=== PATIENT | male | born 2000 | race Caucasian/White ===

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

== ENCOUNTER 2021-03-21 06:32 | Emergency (ER) | payer MEDICAID, OTHER ==
[~2021-03-21] VITALS: Ht 185.4 cm; Wt 99.8 kg
[2021-03-21 06:32] VITALS: BP 134/71
== END 2021-03-21 06:56 | disposition left against medical advice (07) ==
LOC: ER 06:32
DX: Z04.1 Encounter for examination and observation following transport accident (principal); F17.210 Nicotine dependence, cigarettes, uncomplicated; F12.10 Cannabis abuse, uncomplicated; F41.9 Anxiety disorder, unspecified; F32.9 Major depressive disorder, single episode, unspecified

== ENCOUNTER 2022-03-07 19:24 | Emergency (ER) | payer MEDICAID ==
[~2022-03-07] VITALS: Ht 188 cm; Wt 90.7 kg
[2022-03-07] MEDS ORDERED: SODIUM CHLORIDE 0.9% 1,000 ML IV ONE (19:45)
[2022-03-07 20:06] VITALS: BP 110/74
== END 2022-03-07 20:46 | disposition home or self-care (01) ==
LOC: EDBD 19:24 → ER 19:29
DX: F10.129 Alcohol abuse with intoxication, unspecified (principal); Y90.8 Blood alcohol level of 240 mg/100 ml or more
CPT/HCPCS: 36415; 80320

== ENCOUNTER 2023-05-14 00:27 | Inpatient (IN) | payer MEDICAID ==
[~2023-05-14] VITALS: Ht 180.3 cm; Wt 90.9 kg
[2023-05-14 00:40] VITALS: PULSE 99; RESP 15; O2SAT 99
[2023-05-14] MEDS ORDERED: LORazepam 2MG/ML-1ML VIAL IV PRN (00:45)
[2023-05-14] MEDS ORDERED: LORazepam 2MG/ML-1ML VIAL IV ONE (00:45)
[2023-05-14] MEDS ORDERED: SODIUM CHLORIDE 0.9% 1,000 ML IV ONE (00:45)
[2023-05-14] MEDS ORDERED: THIAMINE 100mg/ml INJ (200mg/2ml VIAL) IV ONE (00:45)
[2023-05-14 01:17] LABS: Urine Bacteria NONE SEEN /hpf (None Seen); Urine Color Yellow (Yellow); Urine WBC 3 /hpf (0 - 3)
[2023-05-14 01:18] LABS: Urine Blood Negative /uL (Negative); Urine Clarity CLEAR (Clear); Urine Protein, UAD TRACE (Negative); Urine Urobilinogen Normal (Negative)
[2023-05-14 01:31] LABS: Basophils # (auto) 0.1 10 ^3/uL (0-0.2); Basophils % (auto) 0.6 % (0.0-2.0); Eosinophils # (auto) 0.1 10 ^3/uL (0-0.8); Eosinophils % (auto) 0.8 % (0.0-7.0); Hematocrit 43.6 % (41.0-53.0); Hemoglobin 14.9 g/dL (13.5-17.5); Lymphocytes # (auto) 1.4 10 ^3/uL (0.4-5.4); Lymphocytes % (auto) 15.4 % (10.0-50.0); Mean Corpuscular Hgb Conc. 34.1 g/dL (32.0-36.0); Monocytes # (auto) 0.8 10 ^3/uL (0-1.3); Monocytes % (auto) 8.1 % (0.0-12.0); Neutrophils % (auto) 75.1 % (37.0-80.0); Nucleated Red Blood Cells % 0.1 %; Red Blood Cells 5.13 10^6/uL (4.5-5.90); Red Cell Distribution Width 14.1 % (11.8-14.3); White Blood Cell 9.4 10^3/uL (4.4-10.8)
[2023-05-14 01:43] LABS: Salicylate < 1.7 mg/dL (2.8-20.0)
[2023-05-14 01:44] LABS: Alanine Aminotransferase 119 U/L (16-61); Albumin 3.6 g/dL (3.4-5.0); Anion Gap 8 (5-15); Aspartate Aminotransferase 49 U/L (15-37); BUN/Creatinine Ratio 16.5 (10.0-20.0); Blood Alcohol < 3.0 mg/dL (<10); Blood Urea Nitrogen 14 mg/dL (7-18); Calcium 8.4 mg/dL (8.5-10.1); Carbon Dioxide 28 mmol/L (21-32); Chloride 102 mmol/L (98-107); GFR African American 142 mL/min; GFR Non-African American 118 mL/min; Glucose 110 mg/dL (74-106); Magnesium 2.1 mg/dL (1.6-2.6); Potassium 3.3 mmol/L (3.5-5.1); Sodium 138 mmol/L (136-145)
[2023-05-14 01:46] LABS: Alkaline Phosphatase 45 U/L (45-117); Bilirubin, Total 0.3 mg/dL (0.2-1.0); Total Protein 6.6 g/dL (6.4-8.2)
[2023-05-14 01:47] LABS: Acetaminophen 2.1 ug/mL (10-30)
[2023-05-14 02:18] LABS: Alcohol, Urine < 3.0 mg/dL (0-10); Barbiturate Scree,Urine NEGATIVE (NEGATIVE); Benzodiazephine Screen, Urine NEGATIVE (NEGATIVE); Cannabinoid Screen, Urine POSITIVE (NEGATIVE); Cocaine Screen, Urine NEGATIVE (NEGATIVE)
[2023-05-14 02:25] LABS: Amphetamine Screen, Urine NEGATIVE (NEGATIVE); Opiate Scree,Urine NEGATIVE (NEGATIVE); Phencyclidine Screen, Urine NEGATIVE (NEGATIVE)
[2023-05-14] MEDS ORDERED: NITROGLYCERIN 0.4 MG SL TAB SL PRN (05:45)
[2023-05-14] MEDS ORDERED: ONDANSETRON HCL 4 MG/2 ML VIAL IV PRN (05:45)
[2023-05-14] MEDS ORDERED: hydrALAZINE HCL 20 MG/ML VL IV PRN (05:45)
[2023-05-14] MEDS ORDERED: HYDROcodone-ACET 5/325MG TAB PO PRN (05:45)
[2023-05-14] MEDS ORDERED: IBUPROFEN 600 MG TAB PO PRN (05:45)
[2023-05-14] MEDS ORDERED: MORPHINE SULFATE INJ 2 MG/ml SYRG IV PRN (05:45)
[2023-05-14] MEDS: SODIUM CHLORIDE 0.9% 1,000 ML IV SCH ×2 (05:45→22:29)
[2023-05-14] MEDS ORDERED: DOCUSATE SOD 100 MG CAP PO PRN (05:45)
[2023-05-14 08:06] LABS: Calcium 8.5 mg/dL (8.5-10.1); Potassium 3.5 mmol/L (3.5-5.1)
[2023-05-14 08:12] LABS: Albumin 3.4 g/dL (3.4-5.0); Bilirubin, Total 0.4 mg/dL (0.2-1.0); Total Protein 6.5 g/dL (6.4-8.2)
[2023-05-14 14:14] VITALS: PULSE 20; RESP 20; O2SAT 96
[2023-05-14 19:30] VITALS: PULSE 86; RESP 14; O2SAT 98
[2023-05-15 06:02] LABS: Albumin 3.8 g/dL (3.4-5.0); BUN/Creatinine Ratio 15.5 (10.0-20.0); Calcium 8.9 mg/dL (8.5-10.1); Potassium 3.8 mmol/L (3.5-5.1)
[2023-05-15 06:05] LABS: Bilirubin, Total 0.5 mg/dL (0.2-1.0); Total Protein 6.8 g/dL (6.4-8.2)
[2023-05-15 07:57] VITALS: PULSE 73; RESP 18; O2SAT 96
[2023-05-15 11:24] VITALS: BP 143/78; PULSE 72; RESP 17; TEMP 97.7; O2SAT 98
== END 2023-05-15 12:58 | disposition left against medical advice (07) | DRG 111 ==
LOC: ER 00:27 → EDBD 00:27 → TELE 05:37 → TELE-WESTW 05-15 09:57
PROVIDERS: ADMIT Nurse Practitioner Family; ATTEND Internal Medicine Geriatric Medicine
DX: R42 Dizziness and giddiness (principal); E87.6 Hypokalemia; F41.9 Anxiety disorder, unspecified; I10 Essential (primary) hypertension; R79.89 Other specified abnormal findings of blood chemistry; F12.90 Cannabis use, unspecified, uncomplicated; Z53.29 Procedure and treatment not carried out because of patient's decision for other reasons
CPT/HCPCS: 36415; 71045; 80053; 80307; 80320; 80329; 81001; 83735; 85025; 96361; 96374; 96375; G0378

== ENCOUNTER 2023-09-15 14:39 | Inpatient (IN) | payer MEDICAID ==
[~2023-09-15] VITALS: Ht 182.9 cm; Wt 102.2 kg
[2023-09-15] MEDS ORDERED: SODIUM CHLORIDE 0.9% 1,000 ML IVB ONE (15:00)
[2023-09-15] MEDS ORDERED: TETANUS-DIPTH-ACEL PERTUSSIS 0.5ML SYR Tdap IM ONE (15:00)
[2023-09-15 15:25] VITALS: PULSE 130; RESP 24; O2SAT 95
[2023-09-15 15:27] LABS: Basophils # (auto) 0.1 10 ^3/uL (0-0.2); Basophils % (auto) 0.5 % (0.0-2.0); Eosinophils # (auto) 0 10 ^3/uL (0-0.8); Eosinophils % (auto) 0.2 % (0.0-7.0); Hematocrit 52.8 % (41.0-53.0); Lymphocytes # (auto) 2.5 10 ^3/uL (0.4-5.4); Lymphocytes % (auto) 12.9 % (10.0-50.0); Mean Corpuscular Hgb Conc. 32.3 g/dL (32.0-36.0); Mean Corpuscular Volume 86.7 fL (80.0-100.0); Monocytes # (auto) 1.2 10 ^3/uL (0-1.3); Monocytes % (auto) 6.3 % (0.0-12.0); Neutrophils # (auto) 15.3 10 ^3/uL (1.6-8.6); Neutrophils % (auto) 80.1 % (37.0-80.0); Nucleated Red Blood Cells % 0.1 %; Red Blood Cells 6.09 10^6/uL (4.5-5.90); Red Cell Distribution Width 13.3 % (11.8-14.3); White Blood Cell 19.2 10^3/uL (4.4-10.8)
[2023-09-15 15:41] LABS: Alanine Aminotransferase 82 U/L (7-40); Albumin 5.3 g/dL (3.2-4.8); Alkaline Phosphatase 65 U/L (46-116); Anion Gap 19 (5-15); Aspartate Aminotransferase 22 U/L (13-40); BUN/Creatinine Ratio 11.3 (10.0-20.0); Bilirubin, Total 0.5 mg/dL (0.2-1.0); Blood Alcohol < 3.0 mg/dL (<10); Blood Urea Nitrogen 12 mg/dL (9-23); Calcium 9.5 mg/dL (8.7-10.4); Carbon Dioxide 16 mmol/L (20-30); Chloride 101 mmol/L (98-107); Glucose 197 mg/dL (74-106); Lipase 36 U/L (12-53); Potassium 4.2 mmol/L (3.5-5.1); Sodium 136 mmol/L (136-145)
[2023-09-15] MEDS ORDERED: levETIRAcetam 1000 mg/100ml 100 ML IV ONE ×2 (17:00→17:16)
[2023-09-15] MEDS ORDERED: IBUP-1455 PO (19:12)
[2023-09-15] MEDS ORDERED: CEPH500C PO (19:12)
[2023-09-15] MEDS ORDERED: SILV-51 TOP (19:12)
[2023-09-15] MEDS ORDERED: MORPHINE SULFATE INJ 2 MG/ml SYRG IV PRN (19:15)
[2023-09-15] MEDS ORDERED: NITROGLYCERIN 0.4 MG SL TAB SL PRN (19:15)
[2023-09-15] MEDS ORDERED: ACETAMINOPHEN 325 MG TAB PO PRN (19:15)
[2023-09-15] MEDS ORDERED: LORazepam 2MG/ML-1ML VIAL IV PRN ×2 (19:15→19:30)
[2023-09-15 19:20] VITALS: PULSE 100; RESP 18; O2SAT 98
[2023-09-15] MEDS ORDERED: SODIUM CHLORIDE 0.9% 1,000 ML IV ONE (19:30)
[2023-09-15] MEDS: SODIUM CHLORIDE 0.9% 1,000 ML IV SCH (19:40)
[2023-09-15] MEDS ORDERED: ALBUTEROL SULF 2.5 MG/0.5ML(0.5%) NEB SOLN NEB PRN (19:45)
[2023-09-15] MEDS ORDERED: cefTRIAXone 1GM/50ML D5W 50 ML IV ONE ×2 (19:45→21:01)
[2023-09-15 20:13] VITALS: BP 117/75; PULSE 94; RESP 22; O2SAT 98
[2023-09-15 21:43] VITALS: O2SAT 96
[2023-09-15] MEDS: ONDANSETRON HCL 4 MG/2 ML VIAL IV PRN (21:50)
[2023-09-16] VITALS (7 sets, daily range): BP systolic 118–150; BP diastolic 49–74; PULSE 78–94; RESP 14–20; TEMP 97.9–98.3; O2SAT 96–98
[2023-09-16] MEDS ORDERED: ACETAMINOPHEN 325 MG TAB PO ONE ×2 (01:56→12:01)
[2023-09-16] MEDS: ONDANSETRON HCL 4 MG/2 ML VIAL IV PRN ×3 (01:58→23:36)
[2023-09-16] MEDS ORDERED: ONDANSETRON HCL 4 MG/2 ML VIAL ONE ×3 (01:58→23:32)
[2023-09-16] MEDS ORDERED: HYDROmorphone HCL 2 MG/ML VL/or syr ONE (02:10)
[2023-09-16] MEDS ORDERED: HYDROmorphone HCL 2 MG/ML VL/or syr IV ONE (02:15)
[2023-09-16] MEDS: SODIUM CHLORIDE 0.9% 1,000 ML IV SCH ×3 (03:35→20:29)
[2023-09-16 04:49] LABS: Basophils # (auto) 0 10 ^3/uL (0-0.2); Basophils % (auto) 0.2 % (0.0-2.0); Eosinophils # (auto) 0 10 ^3/uL (0-0.8); Hematocrit 45.5 % (41.0-53.0); Hemoglobin 14.9 g/dL (13.5-17.5); Lymphocytes # (auto) 0.8 10 ^3/uL (0.4-5.4); Lymphocytes % (auto) 4.6 % (10.0-50.0); Mean Corpuscular Hemoglobin 27.7 pg (28.0-32.0); Mean Corpuscular Hgb Conc. 32.8 g/dL (32.0-36.0); Mean Corpuscular Volume 84.7 fL (80.0-100.0); Monocytes # (auto) 1.8 10 ^3/uL (0-1.3); Monocytes % (auto) 10.5 % (0.0-12.0); Neutrophils # (auto) 14.5 10 ^3/uL (1.6-8.6); Neutrophils % (auto) 84.7 % (37.0-80.0); Red Blood Cells 5.37 10^6/uL (4.5-5.90); Red Cell Distribution Width 13.3 % (11.8-14.3); White Blood Cell 17.1 10^3/uL (4.4-10.8)
[2023-09-16 05:05] LABS: Alanine Aminotransferase 62 U/L (7-40); Albumin 4.4 g/dL (3.2-4.8); Alkaline Phosphatase 51 U/L (46-116); Anion Gap 10 (5-15); Aspartate Aminotransferase 49 U/L (13-40); BUN/Creatinine Ratio 7.4 (10.0-20.0); Blood Urea Nitrogen 16 mg/dL (9-23); Calcium 8.5 mg/dL (8.7-10.4); Carbon Dioxide 23 mmol/L (20-30); Chloride 103 mmol/L (98-107); Glucose 115 mg/dL (74-106); Potassium 3.9 mmol/L (3.5-5.1); Sodium 136 mmol/L (136-145)
[2023-09-16 05:06] LABS: Bilirubin, Total 0.6 mg/dL (0.2-1.0); Total Protein 6.7 g/dL (5.7-8.2)
[2023-09-16] MEDS ORDERED: cefTRIAXone 1GM/50ML D5W 50 ML IV ONE (12:01)
[2023-09-16] MEDS ORDERED: ENOXAPARIN SOD 40 MG/0.4 ML SYRINGE SC ONE (12:01)
[2023-09-16] MEDS: cefTRIAXone 1GM/50ML D5W 50 ML IV SCH (12:33)
[2023-09-16] MEDS: ENOXAPARIN SOD 40 MG/0.4 ML SYRINGE SC SCH (12:34)
[2023-09-16] MEDS: FOLIC ACID 1 MG, MAGNESIUM SULF SDV 50% 8 MEQ, MULTIPLE VITAMIN 10 ML, THIAMINE INJ 100... INJ SCH ×5 (17:16)
[2023-09-16] MEDS ORDERED: hydrALAZINE HCL 20 MG/ML VL IV PRN (21:15)
[2023-09-17] VITALS (8 sets, daily range): BP systolic 113–128; BP diastolic 65–83; PULSE 52–85; RESP 16–18; TEMP 97.7–98.5; O2SAT 91–99
[2023-09-17] MEDS ORDERED: HYDROcodone-ACET 5/325MG TAB PO ONE
[2023-09-17] MEDS ORDERED: HYDROcodone-ACET 5/325MG TAB ONE (00:19)
[2023-09-17] MEDS: SODIUM CHLORIDE 0.9% 1,000 ML IV SCH ×3 (04:57→21:29)
[2023-09-17] MEDS: cefTRIAXone 1GM/50ML D5W 50 ML IV SCH (12:10)
[2023-09-17] MEDS: ENOXAPARIN SOD 40 MG/0.4 ML SYRINGE SC SCH (12:10)
[2023-09-17] MEDS: FOLIC ACID 1 MG, MAGNESIUM SULF SDV 50% 8 MEQ, MULTIPLE VITAMIN 10 ML, THIAMINE INJ 100... INJ SCH ×5 (17:16)
[2023-09-18] VITALS (7 sets, daily range): BP systolic 101–153; BP diastolic 51–100; PULSE 46–93; RESP 16–18; TEMP 98–98.9; O2SAT 94–98
[2023-09-18] MEDS ORDERED: TEMAZEPAM 15 MG CAP PO ONE (01:15)
[2023-09-18] MEDS: SODIUM CHLORIDE 0.9% 1,000 ML IV SCH ×3 (05:41→22:15)
[2023-09-18 09:36] LABS: Hepatitis B Core Total AB Negative (Negative)
[2023-09-18] MEDS: ENOXAPARIN SOD 40 MG/0.4 ML SYRINGE SC SCH (10:16)
[2023-09-18] MEDS: cefTRIAXone 1GM/50ML D5W 50 ML IV SCH (10:16)
[2023-09-18 11:36] LABS: Hepatitis A Total Antibody Positive (Negative); Hepatitis B Surface Antibody Negative (Negative); Hepatitis B Surface Antigen Negative (Negative); Hepatitis C Antibody Negative (Negative)
[2023-09-18] MEDS: FOLIC ACID 1 MG, MAGNESIUM SULF SDV 50% 8 MEQ, MULTIPLE VITAMIN 10 ML, THIAMINE INJ 100... INJ SCH ×5 (18:00)
[2023-09-19 04:47] VITALS: BP 142/70; PULSE 50; RESP 16; TEMP 97.8; O2SAT 95
[2023-09-19] MEDS: SODIUM CHLORIDE 0.9% 1,000 ML IV SCH (05:33)
[2023-09-19 08:00] VITALS: BP 153/98; PULSE 55; PULSE 65; RESP 18; TEMP 98.4; O2SAT 97
[2023-09-19] MEDS: cefTRIAXone 1GM/50ML D5W 50 ML IV SCH (09:56)
[2023-09-19] MEDS: ENOXAPARIN SOD 40 MG/0.4 ML SYRINGE SC SCH (09:56)
[2023-09-19] MEDS ORDERED: LORazepam 2MG/ML-1ML VIAL IV ONE (11:45)
== END 2023-09-19 12:48 | disposition left against medical advice (07) | DRG 53 ==
LOC: EDBD 14:39 → ER 14:39 → TELE 19:12 → TELE-WESTW 09-16 07:54
PROVIDERS: ADMIT Nurse Practitioner Family; ATTEND Internal Medicine
DX: G40.909 Epilepsy, unspecified, not intractable, without status epilepticus (principal); K76.0 Fatty (change of) liver, not elsewhere classified; D72.829 Elevated white blood cell count, unspecified; F10.10 Alcohol abuse, uncomplicated; E86.0 Dehydration; S01.91XA Laceration without foreign body of unspecified part of head, initial encounter; I48.91 Unspecified atrial fibrillation; J45.909 Unspecified asthma, uncomplicated; R73.9 Hyperglycemia, unspecified; R19.7 Diarrhea, unspecified; F41.9 Anxiety disorder, unspecified; F10.129 Alcohol abuse with intoxication, unspecified; F12.10 Cannabis abuse, uncomplicated; Z53.29 Procedure and treatment not carried out because of patient's decision for other reasons; F17.210 Nicotine dependence, cigarettes, uncomplicated; W18.39XA Other fall on same level, initial encounter; F20.9 Schizophrenia, unspecified; F31.9 Bipolar disorder, unspecified; Z79.899 Other long term (current) drug therapy; Z81.8 Family history of other mental and behavioral disorders; Z82.49 Family history of ischemic heart disease and other diseases of the circulatory system; Z82.5 Family history of asthma and other chronic lower respiratory diseases; Z83.3 Family history of diabetes mellitus; Y93.89 Activity, other specified; Y92.89 Other specified places as the place of occurrence of the external cause; Y99.8 Other external cause status
CPT/HCPCS: 36415; 70450; 72125; 74176; 80053; 80320; 83036; 83690; 83735; 85025; 86704; 86706; 86708; 86803; 87040; 87340; 90471; 93005; 96361; 96365; 96367; 96375; G0378; J2405

== ENCOUNTER 2023-12-09 17:52 | Inpatient (IN) | payer MEDICAID ==
[~2023-12-09] VITALS: Ht 185.4 cm; Wt 99.5 kg
[2023-12-09 19:45] LABS: Basophils # (auto) 0 10 ^3/uL (0-0.2); Basophils % (auto) 0.1 % (0.0-2.0); Eosinophils # (auto) 0 10 ^3/uL (0-0.8); Hematocrit 46.4 % (41.0-53.0); Hemoglobin 15.4 g/dL (13.5-17.5); Lymphocytes # (auto) 0.7 10 ^3/uL (0.4-5.4); Lymphocytes % (auto) 4.7 % (10.0-50.0); Mean Corpuscular Hemoglobin 27.6 pg (28.0-32.0); Mean Corpuscular Hgb Conc. 33.1 g/dL (32.0-36.0); Mean Corpuscular Volume 83.5 fL (80.0-100.0); Monocytes # (auto) 0.5 10 ^3/uL (0-1.3); Monocytes % (auto) 3.2 % (0.0-12.0); Neutrophils # (auto) 14.7 10 ^3/uL (1.6-8.6); Red Blood Cells 5.55 10^6/uL (4.5-5.90); Red Cell Distribution Width 13.5 % (11.8-14.3)
[2023-12-09 20:00] VITALS: PULSE 82; RESP 13; O2SAT 98
[2023-12-09 20:01] LABS: INR 1.07 (0.9-1.15); Partial Thromboplastin Time 36.5 SEC (24.5-34.5); Prothrombin Time 11.2 sec (9.3-11.8)
[2023-12-09 20:03] LABS: Alanine Aminotransferase 32 U/L (7-40); Albumin 4.6 g/dL (3.2-4.8); Alkaline Phosphatase 70 U/L (46-116); Anion Gap 9 (5-15); Aspartate Aminotransferase 16 U/L (13-40); Blood Urea Nitrogen 12 mg/dL (9-23); Calcium 9.5 mg/dL (8.7-10.4); Carbon Dioxide 23 mmol/L (20-30); Chloride 102 mmol/L (98-107); Glucose 90 mg/dL (74-106); Potassium 4.1 mmol/L (3.5-5.1); Sodium 134 mmol/L (136-145)
[2023-12-09 20:04] LABS: Bilirubin, Total 0.5 mg/dL (0.2-1.0); Total Protein 6.8 g/dL (5.7-8.2)
[2023-12-09] MEDS: levETIRAcetam 1000 mg/100ml 100 ML IV ONE (20:09)
[2023-12-09 20:19] LABS: Blood Alcohol < 3.0 mg/dL (<10)
[2023-12-09] MEDS ORDERED: ACETAMINOPHEN 325 MG TAB PO PRN (21:45)
[2023-12-09] MEDS ORDERED: ONDANSETRON HCL 4 MG/2 ML VIAL IV PRN (21:45)
[2023-12-09] MEDS ORDERED: DOCUSATE SOD 100 MG CAP PO PRN (21:45)
[2023-12-09] MEDS: SODIUM CHLORIDE 0.9% 1,000 ML IV SCH (21:52)
[2023-12-09] MEDS: HYDROcodone-ACET 5/325MG TAB PO PRN (21:52)
[2023-12-09 22:26] LABS: Amphetamine Screen, Urine Neg (NEGATIVE); Barbiturate Scree,Urine Neg (NEGATIVE); Benzodiazephine Screen, Urine Neg (NEGATIVE); Cannabinoid Screen, Urine Pos (NEGATIVE); Cocaine Screen, Urine Neg (NEGATIVE); Opiate Scree,Urine Neg (NEGATIVE); Phencyclidine Screen, Urine Neg (NEGATIVE)
[2023-12-09] MEDS ORDERED: HYDR-4924 PO ×2 (23:02)
[2023-12-09] MEDS ORDERED: RISP0.5T17 PO ×2 (23:02)
[2023-12-09] MEDS ORDERED: MORPHINE SULFATE INJ 2 MG/ml SYRG IV PRN (23:45)
[2023-12-09] MEDS ORDERED: NITROGLYCERIN 0.4 MG SL TAB SL PRN (23:45)
[2023-12-10 05:31] LABS: Basophils # (auto) 0.1 10 ^3/uL (0-0.2); Basophils % (auto) 0.7 % (0.0-2.0); Eosinophils # (auto) 0.1 10 ^3/uL (0-0.8); Eosinophils % (auto) 0.7 % (0.0-7.0); Hematocrit 45.1 % (41.0-53.0); Hemoglobin 14.9 g/dL (13.5-17.5); Lymphocytes # (auto) 2.9 10 ^3/uL (0.4-5.4); Lymphocytes % (auto) 22.1 % (10.0-50.0); Mean Corpuscular Hemoglobin 27.6 pg (28.0-32.0); Mean Corpuscular Hgb Conc. 33.1 g/dL (32.0-36.0); Mean Corpuscular Volume 83.5 fL (80.0-100.0); Monocytes # (auto) 1.3 10 ^3/uL (0-1.3); Monocytes % (auto) 9.7 % (0.0-12.0); Neutrophils # (auto) 8.9 10 ^3/uL (1.6-8.6); Neutrophils % (auto) 66.8 % (37.0-80.0); Red Blood Cells 5.41 10^6/uL (4.5-5.90); Red Cell Distribution Width 13.5 % (11.8-14.3); White Blood Cell 13.3 10^3/uL (4.4-10.8)
[2023-12-10] MEDS: MELATONIN 5 MG TAB PO ONE (05:38)
[2023-12-10] MEDS ORDERED: MELATONIN 5 MG TAB PO SCH (05:45)
[2023-12-10 05:55] LABS: Alanine Aminotransferase 26 U/L (7-40); Albumin 4.4 g/dL (3.2-4.8); Alkaline Phosphatase 61 U/L (46-116); Anion Gap 7 (5-15); Aspartate Aminotransferase 12 U/L (13-40); Blood Urea Nitrogen 10 mg/dL (9-23); Calcium 9.4 mg/dL (8.7-10.4); Carbon Dioxide 25 mmol/L (20-30); Chloride 104 mmol/L (98-107); Glucose 90 mg/dL (74-106); Potassium 3.5 mmol/L (3.5-5.1); Sodium 136 mmol/L (136-145)
[2023-12-10 05:56] LABS: Bilirubin, Total 0.6 mg/dL (0.2-1.0); Total Protein 6.8 g/dL (5.7-8.2)
[2023-12-10 07:30] VITALS: PULSE 64; RESP 22; O2SAT 95
[2023-12-10] MEDS: levETIRAcetam 1000 mg/100ml 100 ML IV SCH (10:12)
[2023-12-10 17:20] VITALS: BP 130/70; PULSE 73; RESP 20; TEMP 98.2; O2SAT 98
[2023-12-10] MEDS ORDERED: MELA3TAB27 PO ×2 (19:06)
[2023-12-10 20:00] VITALS: PULSE 85; RESP 16; O2SAT 98
[2023-12-10 20:10] VITALS: PULSE 85
[2023-12-10 22:00] VITALS: BP 117/69; PULSE 57; RESP 17; TEMP 98.6; O2SAT 98
[2023-12-11 05:00] VITALS: BP 100/68; PULSE 74; RESP 16; TEMP 98; O2SAT 95
[2023-12-11 08:30] VITALS: PULSE 47
[2023-12-11 09:15] VITALS: BP 78/32; PULSE 60; RESP 18; TEMP 97.4; O2SAT 96
[2023-12-11 12:33] VITALS: BP 115/73; PULSE 69; RESP 18; TEMP 98.3; O2SAT 97
[2023-12-11] MEDS: hydrOXYzine 25 MG TAB or CAP PO SCH (12:54)
[2023-12-11 20:00] VITALS: BP 111/74; PULSE 73; PULSE 92; RESP 18; TEMP 98.5; O2SAT 95
[2023-12-11] MEDS: risperiDONE 1 MG TAB PO SCH (21:44)
[2023-12-11 22:00] VITALS: BP 111/74; PULSE 73; RESP 18; TEMP 98.5; O2SAT 95
[2023-12-12 05:00] VITALS: BP 101/63; PULSE 63; RESP 19; TEMP 97.5; O2SAT 95
[2023-12-12 08:00] VITALS: BP 114/68; PULSE 70; PULSE 81; RESP 16; TEMP 98.6; O2SAT 96
[2023-12-12 08:15] VITALS: BP 113/69; PULSE 56; RESP 18; TEMP 98.6; O2SAT 97
[2023-12-12 12:20] VITALS: BP 115/75; PULSE 68; RESP 18; TEMP 98.8; O2SAT 96
== END 2023-12-12 16:40 | disposition home or self-care (01) | DRG 53 ==
LOC: ER 17:52 → TELE 23:32 → TELE-WESTW 12-10 17:38
PROVIDERS: ADMIT Nurse Practitioner Family; ATTEND Internal Medicine
DX: G40.909 Epilepsy, unspecified, not intractable, without status epilepticus (principal); D72.829 Elevated white blood cell count, unspecified; F10.239 Alcohol dependence with withdrawal, unspecified; F17.200 Nicotine dependence, unspecified, uncomplicated; Z83.3 Family history of diabetes mellitus; Y90.9 Presence of alcohol in blood, level not specified
CPT/HCPCS: 36415; 70450; 71045; 80053; 80307; 80320; 82542; 84484; 85025; 85610; 85730; 93005; 95819; 96365; G0378

== ENCOUNTER 2023-12-15 17:57 | Emergency (ER) | payer MEDICAID ==
[~2023-12-15] VITALS: Ht 185.4 cm; Wt 97.7 kg
[~2023-12-15 17:57] MED LIST: HYDR-4924 PO; MELA3TAB27 PO; RISP0.5T17 PO
[2023-12-15] MEDS: BACITRACIN TOP OINT 1 UD PKG TOP ONE (19:24)
[2023-12-15] MEDS: TETANUS-DIPTH-ACEL PERTUSSIS 0.5ML SYR Tdap IM ONE (19:24)
[2023-12-15] MEDS: MORPHINE SULFATE 4 MG/ML SYR/VIAL IV ONE (19:28)
[2023-12-15] MEDS: ONDANSETRON HCL 4 MG/2 ML VIAL IV ONE (19:28)
[2023-12-15 21:40] VITALS: BP 143/96; PULSE 78; RESP 18; TEMP 99; O2SAT 96
== END 2023-12-15 21:45 | disposition short-term general hospital (02) ==
LOC: ER 17:57
DX: T23.202A Burn of second degree of left hand, unspecified site, initial encounter (principal); F12.10 Cannabis abuse, uncomplicated; J45.909 Unspecified asthma, uncomplicated; X08.8XXA Exposure to other specified smoke, fire and flames, initial encounter; Y93.G1 Activity, food preparation and clean up; Y92.89 Other specified places as the place of occurrence of the external cause; Y99.8 Other external cause status
CPT/HCPCS: 16020; 90471; 90715; 96374; 96375; 99285; J2270; J2405

== ENCOUNTER 2024-04-19 07:54 | Inpatient (IN) | payer MEDICAID ==
[~2024-04-19] VITALS: Ht 182.9 cm; Wt 98.3 kg
[2024-04-19 08:15] VITALS: PULSE 88; RESP 18; O2SAT 95
[2024-04-19] MEDS: SODIUM CHLORIDE 0.9% 1,000 ML IV ONE (08:22)
[2024-04-19] MEDS: LORazepam 2MG/ML-1ML VIAL IV ONE (08:23)
[2024-04-19] MEDS: levETIRAcetam 1000 mg/100ml 100 ML IV ONE (08:23)
[2024-04-19 08:44] LABS: Basophils # (auto) 0.1 10 ^3/uL (0-0.2); Basophils % (auto) 0.3 % (0.0-2.0); Eosinophils # (auto) 0 10 ^3/uL (0-0.8); Hemoglobin 15.2 g/dL (13.5-17.5); Lymphocytes # (auto) 1.4 10 ^3/uL (0.4-5.4); Lymphocytes % (auto) 7.3 % (10.0-50.0); Mean Corpuscular Hemoglobin 27.5 pg (28.0-32.0); Mean Corpuscular Hgb Conc. 33.7 g/dL (32.0-36.0); Mean Corpuscular Volume 81.8 fL (80.0-100.0); Monocytes # (auto) 1.3 10 ^3/uL (0-1.3); Monocytes % (auto) 7.1 % (0.0-12.0); Neutrophils # (auto) 15.9 10 ^3/uL (1.6-8.6); Neutrophils % (auto) 85.3 % (37.0-80.0); Nucleated Red Blood Cells % 0.1 %; Red Blood Cells 5.51 10^6/uL (4.5-5.90); Red Cell Distribution Width 14.8 % (11.8-14.3); White Blood Cell 18.6 10^3/uL (4.4-10.8)
[2024-04-19 08:47] LABS: Chloride 99 mmol/L (98-107); Potassium 3.5 mmol/L (3.5-5.1); Sodium 134 mmol/L (136-145)
[2024-04-19 08:48] LABS: Anion Gap 8 (5-15); Carbon Dioxide 27 mmol/L (20-30)
[2024-04-19 08:49] LABS: Calcium 9.2 mg/dL (8.7-10.4)
[2024-04-19 08:53] LABS: BUN/Creatinine Ratio 14.5 (10.0-20.0); Blood Urea Nitrogen 10 mg/dL (9-23); Glucose 132 mg/dL (74-106)
[2024-04-19] MEDS ORDERED: SODIUM CHLORIDE 0.9% 1,000 ML IV SCH (11:15)
[2024-04-19] MEDS ORDERED: NITROGLYCERIN 0.4 MG SL TAB SL PRN (11:15)
[2024-04-19] MEDS ORDERED: DOCUSATE SOD 100 MG CAP PO PRN (11:15)
[2024-04-19] MEDS ORDERED: ONDANSETRON HCL 4 MG/2 ML VIAL IV PRN (11:15)
[2024-04-19] MEDS ORDERED: LORazepam 2MG/ML-1ML VIAL IV PRN (11:15)
[2024-04-19] MEDS ORDERED: MORPHINE SULFATE INJ 2 MG/ml SYRG IV PRN ×2 (11:15)
[2024-04-19 12:53] VITALS: O2SAT 98
[2024-04-19 13:00] VITALS: BP 122/92; PULSE 87; RESP 17; TEMP 99.3; O2SAT 96
[2024-04-19] MEDS ORDERED: KEP500T PO (13:44)
[2024-04-19] MEDS ORDERED: levETIRAcetam 1000 mg/100ml 100 ML IV SCH (22:00)
== END 2024-04-19 16:04 | disposition left against medical advice (07) | DRG 53 ==
LOC: ER 07:54 → OVERFLOW 11:11 → EAST 12:12
PROVIDERS: ADMIT Nurse Practitioner Family; ATTEND Nurse Practitioner Family
DX: G40.909 Epilepsy, unspecified, not intractable, without status epilepticus (principal); D72.829 Elevated white blood cell count, unspecified; F41.9 Anxiety disorder, unspecified; F17.200 Nicotine dependence, unspecified, uncomplicated; F32.A Depression, unspecified; Z83.3 Family history of diabetes mellitus; F10.939 Alcohol use, unspecified with withdrawal, unspecified
CPT/HCPCS: 36415; 80048; 82962; 85025; 96365; 96375; G0378

== ENCOUNTER 2024-04-30 14:23 | Emergency (ER) | payer MEDICAID ==
[~2024-04-30] VITALS: Ht 182.9 cm; Wt 100.1 kg
[~2024-04-30 14:23] MED LIST changes: +KEP500T PO; -MELA3TAB27 PO
[2024-04-30 14:57] VITALS: BP 140/77; PULSE 87; RESP 16; TEMP 98.6; O2SAT 99
[2024-04-30] MEDS ORDERED: AUG875T PO (15:04)
[2024-04-30] MEDS: cefTRIAXone SOD 1,000 MG VL IM ONE (15:33)
[2024-04-30] MEDS: TETANUS-DIPTH-ACEL PERTUSSIS 0.5ML SYR Tdap IM ONE (15:34)
== END 2024-04-30 15:42 | disposition home or self-care (01) ==
LOC: ER 14:23
DX: S71.151A Open bite, right thigh, initial encounter (principal); F12.10 Cannabis abuse, uncomplicated; W54.0XXA Bitten by dog, initial encounter; Y93.89 Activity, other specified; Y92.89 Other specified places as the place of occurrence of the external cause; Y99.8 Other external cause status
CPT/HCPCS: 90471; 90715; 96372; 99284; J0696

== ENCOUNTER 2024-06-03 23:49 | Emergency (ER) | payer MEDICAID ==
[~2024-06-03] VITALS: Ht 180.3 cm; Wt 109.0 kg
[~2024-06-03 23:49] MED LIST changes: +AUG875T PO
[2024-06-04] VITALS: BP 127/85; PULSE 89; RESP 18; O2SAT 96
== END 2024-06-04 00:48 | disposition left against medical advice (07) ==
LOC: ER 23:49
DX: K92.1 Melena (principal); R10.9 Unspecified abdominal pain; F41.9 Anxiety disorder, unspecified; F32.9 Major depressive disorder, single episode, unspecified; F15.90 Other stimulant use, unspecified, uncomplicated; Z87.891 Personal history of nicotine dependence; Z79.899 Other long term (current) drug therapy